=== PATIENT | male | born 1940 | race Caucasian/White ===

== ENCOUNTER → 2017-02-01 | Outpatient (CLI) | payer OTHER ==
[~2017-02-01] VITALS: Ht 177.8 cm; Wt 79.4 kg
[~2017-02-01] MED LIST: APAP500 PO; ASPIR 8181 MG PO; ATIVAN1 MG PO; CO Q-10100 MG PO; COSOPT EYE DROPS5 ML; COSOPT OCUMETER10 M1 OP; COZAAR 25 MG TA25 M1 PO; DULCOLAX5 MG PO; ELIQUIS5 MG PO; FISH OIL 1,001000 M2 PO; FISH OIL 1,4001 EACH PO; FLOMAX0.4 MG PO; LIPITOR10 MG PO; LORATIDINE 10 M10 M1 PO; LOSARTAN POTASS50 MG PO; MEN'S MULTI-VI1 EACH PO; METAMUCIL PACK1 EACH PO; MYRBETRIQ25 MG PO; PEPCID20 MG PO; SYSTANE BALANCE10 ML OP; TOPROL XL50 MG PO; VESICARE 5 MG TA5 MG PO; VESICARE10 M1 PO; VIAGRA100 MG PO; VIAGRA50 MG PO; XALATAN2.5 ML OPHTHALMIC
[2017-02-01 11:20] LABS: HEMOGLOBIN 15.9 gm/dL (14.0-18.0); MCH 31.5 pg (26.0-34.0); MCHC 33.8 g/dL (28.0-37.0); MCV 93.4 fL (80.0-100.0); RBC 5.03 mil/uL (4.50-6.00); RDW 14.2 % (10.5-14.5); WBC 5.8 thou/uL (4.0-11.0)
[2017-02-01 11:22] LABS: URINE BILIRUBIN NEGATIVE (Negative); URINE BLOOD NEGATIVE (Negative); URINE COLOR YELLOW; URINE GLUCOSE-RANDOM* NEGATIVE (Negative); URINE KETONES NEGATIVE (Negative); URINE LEUKOCYTES-REFLEX NEGATIVE (Negative); URINE PROTEIN (DIPSTICK) NEGATIVE (Negative); URINE SPECIFIC GRAVITY 1.015 (1.003-1.035); URINE UROBILINOGEN 0.2 E.U./dl (0.2-1.0)
[2017-02-01 11:27] LABS: CREATININE 0.9 mg/dL (0.7-1.3); POTASSIUM 4.6 mmol/L (3.5-5.1)
[2017-02-01 11:34] LABS: INR 1.1; PROTIME 11.5 Seconds (9.3-11.4)
== END ==
LOC: PAC 01-16 10:58 → OR 01-25 14:34 → PAC 10:58 → OR 02-08 05:49 → EDSTATUS 02-08 08:33 → OR 02-08 10:33
PROVIDERS: Orthopaedic Surgery Sports Medicine
DX: M25.511 Pain in right shoulder (principal)